=== PATIENT | male | born 2000 | race Caucasian/White ===

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

== ENCOUNTER → 2019-06-09 11:47 | Outpatient (CLI) | payer SELFPAY ==
--- NOTE | 2019-06-09 11:54 | XR_ITS ---
PROCEDURE: XR KNEE LT 3V CLINICAL INDICATION: LT LEG PAIN COMPARISON: No exams were available for comparison FINDINGS: No fracture or dislocation. No lytic or blastic change. There is normal mineralization. The joint spaces are well-preserved. No significant degenerative/arthritic changes. No erosive changes evident. Other findings:None. IMPRESSION: Negative left knee. Dictated by: Edwardo Tsang MD 06/09/2019 13:07 Electronically signed by Edwardo Tsang MD in [place] 06/09/2019 13:07
== END ==
PROVIDERS: Visit Provider Family Medicine
DX: M79.605 Pain in left leg (principal)
CPT/HCPCS: 73562

== ENCOUNTER → 2019-06-14 08:50 | Outpatient (CLI) | payer SELFPAY ==
--- NOTE | 2019-06-14 08:52 | US_ITS ---
PROCEDURE: US ABDOMEN LIMITED CLINICAL INDICATION: FATTY LIVER DISEASE COMPARISON: No exams were available for comparison FINDINGS: PANCREAS: Unremarkable. No obvious mass or abnormal fluid collection. No ductal dilatation LIVER: No focal liver lesions demonstrated. Homogeneous echogenicity. No intrahepatic biliary ductal dilatation evident. There is appropriate direction of blood flow within a non dilated portal vein RIGHT KIDNEY: Unremarkable. Normal size and echogenicity. No hydronephrosis GALLBLADDER: Gallstones are present. No gallbladder wall thickening, pericholecystic fluid, or biliary dilatation.. Common bile duct is 3 mm IMPRESSION: Cholelithiasis Dictated by: Edwardo Tsang MD 06/14/2019 16:53 Electronically signed by Edwardo Tsang MD in [place] 06/14/2019 16:53
== END ==
PROVIDERS: PCP Family Medicine; Visit Provider Family Medicine
DX: M79.605 Pain in left leg (principal); K76.0 Fatty (change of) liver, not elsewhere classified
CPT/HCPCS: 76705